=== PATIENT | female | born 1975 | race Caucasian/White ===

== ENCOUNTER 2019-07-03 09:54 | Outpatient (CLI) | payer OTHER ==
--- NOTE | 2019-07-03 12:15 | MRI ---
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 Pain is in mid forea rm region. She describes both anterior as well as posterior pain. This examination was tailored to ev aluate the elbow and proximal forearm region, although additional sequence was performed to include t he more distal forearm to wrist level. FINDINGS: The biceps, as well as triceps tendons are intact. The ulnar collateral ligament and lateral collateral ligament and LUCL all appear intact. There are some minimal tendinosis changes of the common extensor tendon origin. At the level of the common flexor tendon origin, there is some minimal edema change seen. Specificall y, these changes involve the musculotendinous junction of the flexor digitorum superficialis and at t he level of the origin of the humeral head of the pronator teres from the medial epicondyle. There is also a second separate area of some very mild Grade I muscle strain seen within the pronator teres m uscle. This is located more distally as directly superficial to the level of the biceps attachment on the radial tuberosity. The biceps tendon attachment is normal. IMPRESSION: Evidence of some mild muscle strain at the level of the common flexor tendon muscle group. Changes in clude some mild strain of the flexor digitorum superficialis and pronator teres muscles. POS: [facility]
== END 2019-07-03 09:55 | disposition home or self-care (01) ==
LOC: BICMRI 09:54
PROVIDERS: ATTEND Family Medicine
DX: S56.21 Strain of other flexor muscle, fascia and tendon at forearm level (principal)